=== PATIENT | male | born 1945 | race Two or more races ===

== ENCOUNTER 2022-12-17 16:31 | Inpatient (IN) | payer OTHER ==
[~2022-12-17] VITALS: Ht 165.1 cm; Wt 72.6 kg
[2022-12-17] MEDS ORDERED: DULCOLAX5 MG PO (17:14)
[2022-12-17 18:17] LABS: HEMATOCRIT 34.6 % (39.0-48.0); HEMOGLOBIN 11.2 g/dL (13-16.00); MEAN CELL VOLUME 88.4 fL (80.0-100.00); MEAN CORPUSCULAR HEMOGLOBIN 28.5 pg (27.00-32.0); MEAN CORPUSCULAR HGB CONC 32.3 g/dl (32.0-36.0); PLATELET COUNT 340 K/uL (150-450); RED BLOOD COUNT 3.92 M/uL (4.00-6.00); RED CELL DISTRIBUTION WIDTH 12.8 % (11.5-14.5)
[2022-12-17 18:38] LABS: INR 1.07; PARTIAL THROMBOPLASTIN TIME 30.2 SECONDS (22.0-34.0); PROTHROMBIN TIME 11.2 SECONDS (9.0-11.5)
[2022-12-17 18:50] LABS: ALBUMIN 3.1 gm/dL (3.4-5.0); BILIRUBIN TOTAL 0.61 mg/dL (0.3-1.2); CALCIUM 9.2 mg/dL (8.5-10.1); CREATININE SERUM 0.78 mg/dL (0.70-1.30); GFR 96.77; GLOBULINA 3.9 G/DL (2.4-3.5); POTASSIUM 4.81 mEq/L (3.5-5.1)
[2022-12-18 19:35] LABS: HEMATOCRIT 34.3 % (39.0-48.0); HEMOGLOBIN 11.5 g/dL (13-16.00); MEAN CELL VOLUME 86.6 fL (80.0-100.00); MEAN CORPUSCULAR HGB CONC 33.5 g/dl (32.0-36.0); PLATELET COUNT 298 K/uL (150-450); RED BLOOD COUNT 3.96 M/uL (4.00-6.00); RED CELL DISTRIBUTION WIDTH 13.1 % (11.5-14.5)
[2022-12-18 20:12] LABS: ALBUMIN 2.7 gm/dL (3.4-5.0); CALCIUM 8.7 mg/dL (8.5-10.1); CREATININE SERUM 0.79 mg/dL (0.70-1.30); GFR 95.36; MAGNESIUM 2.2 mg/dL (1.8-2.4); PHOSPHOROUS 3.4 mg/dL (2.5-4.9); POTASSIUM 4.45 mEq/L (3.5-5.1)
[2022-12-19 07:49] LABS: HEMATOCRIT 35.5 % (39.0-48.0); HEMOGLOBIN 11.4 g/dL (13-16.00); MEAN CELL VOLUME 87.5 fL (80.0-100.00); PLATELET COUNT 330 K/uL (150-450); RED BLOOD COUNT 4.06 M/uL (4.00-6.00); RED CELL DISTRIBUTION WIDTH 12.7 % (11.5-14.5)
[2022-12-19 08:24] LABS: ALBUMIN 2.6 gm/dL (3.4-5.0); CALCIUM 8.9 mg/dL (8.5-10.1); CREATININE SERUM 0.85 mg/dL (0.70-1.30); GFR 87.64; MAGNESIUM 2.2 mg/dL (1.8-2.4); PHOSPHOROUS 3.3 mg/dL (2.5-4.9); POTASSIUM 4.6 mEq/L (3.5-5.1)
[2022-12-20 08:08] LABS: ALBUMIN 2.6 gm/dL (3.4-5.0); BILIRUBIN TOTAL 1.19 mg/dL (0.3-1.2); CALCIUM 8.9 mg/dL (8.5-10.1); CREATININE SERUM 0.94 mg/dL (0.70-1.30); GFR 78.03; GLOBULINA 3.6 G/DL (2.4-3.5); MAGNESIUM 2.1 mg/dL (1.8-2.4); POTASSIUM 4.61 mEq/L (3.5-5.1); TOTAL PROTEIN 6.2 gm/dL (6.4-8.2)
[2022-12-20 09:03] LABS: HEMATOCRIT 34.9 % (39.0-48.0); HEMOGLOBIN 11.8 g/dL (13-16.00); MEAN CELL VOLUME 86.4 fL (80.0-100.00); MEAN CORPUSCULAR HEMOGLOBIN 29.1 pg (27.00-32.0); MEAN CORPUSCULAR HGB CONC 33.7 g/dl (32.0-36.0); PLATELET COUNT 308 K/uL (150-450); RED BLOOD COUNT 4.05 M/uL (4.00-6.00); RED CELL DISTRIBUTION WIDTH 13.2 % (11.5-14.5)
[2022-12-22 07:46] LABS: HEMATOCRIT 33.1 % (39.0-48.0); HEMOGLOBIN 11.1 g/dL (13-16.00); MEAN CELL VOLUME 88.2 fL (80.0-100.00); MEAN CORPUSCULAR HEMOGLOBIN 29.5 pg (27.00-32.0); MEAN CORPUSCULAR HGB CONC 33.4 g/dl (32.0-36.0); PLATELET COUNT 292 K/uL (150-450); RED BLOOD COUNT 3.75 M/uL (4.00-6.00); RED CELL DISTRIBUTION WIDTH 12.9 % (11.5-14.5)
[2022-12-22 08:06] LABS: CALCIUM 8.5 mg/dL (8.5-10.1); CREATININE SERUM 0.86 mg/dL (0.70-1.30); GFR 86.46; POTASSIUM 4.36 mEq/L (3.5-5.1)
[2022-12-22] MEDS ORDERED: TRAM1TAB98 PO (13:13)
[2022-12-22] MEDS ORDERED: DICY20TA PO (13:14)
[2022-12-22] MEDS ORDERED: IMODIUM A-D2 MG PO (13:14)
[2022-12-22] MEDS ORDERED: PEPCID AC20 MG PO (13:14)
== END 2022-12-22 17:30 | disposition home or self-care (01) | DRG 330 ==
LOC: ER 16:31 → SURH 18:36
PROVIDERS: General Practice; Internal Medicine; ADMIT Surgery; ATTEND Surgery
PROC: BW21YZZ Computerized Tomography (CT Scan) of Abdomen and Pelvis using Other Contrast (ICD-10-PCS; 2022-12-17)
PROC: 0D1B4Z4 Bypass Ileum to Cutaneous, Percutaneous Endoscopic Approach (ICD-10-PCS; principal; 2022-12-18 13:15)
DX: C18.0 Malignant neoplasm of cecum (principal); K56.691 Other complete intestinal obstruction

== ENCOUNTER 2022-12-27 11:02 | Inpatient (IN) | payer OTHER ==
[~2022-12-27] VITALS: Ht 167.6 cm; Wt 64.4 kg
[~2022-12-27 11:02] MED LIST: DICY20TA PO; DULCOLAX5 MG PO; IMODIUM A-D2 MG PO; PEPCID AC20 MG PO; TRAM1TAB98 PO
[2022-12-27 13:50] LABS: HEMATOCRIT 33.6 % (39.0-48.0); HEMOGLOBIN 10.7 g/dL (13-16.00); MEAN CELL VOLUME 87.7 fL (80.0-100.00); MEAN CORPUSCULAR HEMOGLOBIN 27.9 pg (27.00-32.0); MEAN CORPUSCULAR HGB CONC 31.9 g/dl (32.0-36.0); PLATELET COUNT 371 K/uL (150-450); RED BLOOD COUNT 3.83 M/uL (4.00-6.00); RED CELL DISTRIBUTION WIDTH 13.8 % (11.5-14.5)
[2022-12-27 13:55] LABS: ALBUMIN 2.7 gm/dL (3.4-5.0); BILIRUBIN TOTAL 1.05 mg/dL (0.3-1.2); CALCIUM 9.2 mg/dL (8.5-10.1); CREATININE SERUM 0.82 mg/dL (0.70-1.30); GFR 91.35; GLOBULINA 4.2 G/DL (2.4-3.5); POTASSIUM 4.13 mEq/L (3.5-5.1); TOTAL PROTEIN 6.9 gm/dL (6.4-8.2)
[2022-12-29] MEDS ORDERED: COLACE100 MG (10:34)
[2022-12-30] MEDS ORDERED: DICY20TA PO (08:09)
[2022-12-30] MEDS ORDERED: PEPCID AC20 MG PO (08:09)
[2022-12-30] MEDS ORDERED: INTESTINEX680 M1 PO (08:10)
== END 2022-12-30 12:16 | disposition home or self-care (01) | DRG 375 ==
LOC: ER 11:02 → SURG 12-28 07:35
PROVIDERS: Emergency Medicine; ADMIT Surgery; ATTEND Surgery
PROC: BW21ZZZ Computerized Tomography (CT Scan) of Abdomen and Pelvis (ICD-10-PCS; principal; 2022-12-27)
DX: C18.0 Malignant neoplasm of cecum (principal); K56.691 Other complete intestinal obstruction; Z93.2 Ileostomy status; R11.2 Nausea with vomiting, unspecified

== ENCOUNTER 2023-01-02 10:01 | Inpatient (IN) | payer OTHER ==
[~2023-01-02] VITALS: Ht 167.6 cm; Wt 63.5 kg
[~2023-01-02 10:01] MED LIST changes: +COLACE100 MG; +INTESTINEX680 M1 PO
[2023-01-02] MEDS ORDERED: DIALYVITE TABL1 EACH PO (10:44)
[2023-01-02] MEDS ORDERED: LYSIPLEX PLUS178 ML PO (10:45)
[2023-01-02 13:56] LABS: HEMATOCRIT 33.6 % (39.0-48.0); HEMOGLOBIN 11.4 g/dL (13-16.00); MEAN CELL VOLUME 86.1 fL (80.0-100.00); MEAN CORPUSCULAR HEMOGLOBIN 29.1 pg (27.00-32.0); MEAN CORPUSCULAR HGB CONC 33.8 g/dl (32.0-36.0); PLATELET COUNT 433 K/uL (150-450); RED CELL DISTRIBUTION WIDTH 13.9 % (11.5-14.5)
[2023-01-02 14:34] LABS: BILIRUBIN TOTAL 2.17 mg/dL (0.3-1.2); CALCIUM 10.3 mg/dL (8.5-10.1); CREATININE SERUM 1.21 mg/dL (0.70-1.30); GFR 58.3; GLOBULINA 3.9 G/DL (2.4-3.5); POTASSIUM 4.47 mEq/L (3.5-5.1); TOTAL PROTEIN 6.9 gm/dL (6.4-8.2)
[2023-01-03 03:18] LABS: ABG PH 7.516 (7.35-7.45); ABG PO2 83.2 mmHg (80-100); ABG pCO2 43.8 mmHg (35-45); BASE EXCESS 10.4 mmol/l; BICARBONATE 34.6 mmol/l (23-25); SaO2 97.5 %; allen test SATISFACTORY; puncture site RADIAL LEFT
[2023-01-03 03:19] LABS: o2 21 %
[2023-01-03 07:35] LABS: URINE APPEARANCE Clear; URINE BILIRRUBIN Small (NEGATIVE); URINE BLOOD Trace; URINE COLOR Dark Yellow; URINE GLUCOSE Negative (NEGATIVE); URINE LEUKOCYTE Trace; URINE NITRATE Negative; URINE PROTEIN Negative (NEGATIVE)
[2023-01-03 07:37] LABS: URINE BACTERIA 84.4 uL (0.0-1933); URINE EPITHELIAL CELLS 18.8 uL (0.0-38.8); URINE RBC 22.1 uL (0.0-20.8); URINE WBC 7.7 uL (0.0-23.2)
[2023-01-03 07:55] LABS: HEMATOCRIT 34.6 % (39.0-48.0); HEMOGLOBIN 11.6 g/dL (13-16.00); MEAN CELL VOLUME 86.4 fL (80.0-100.00); MEAN CORPUSCULAR HEMOGLOBIN 29.1 pg (27.00-32.0); MEAN CORPUSCULAR HGB CONC 33.6 g/dl (32.0-36.0); PLATELET COUNT 440 K/uL (150-450); RED BLOOD COUNT 4.01 M/uL (4.00-6.00); RED CELL DISTRIBUTION WIDTH 14.2 % (11.5-14.5)
[2023-01-03 08:35] LABS: INR 1.12; PARTIAL THROMBOPLASTIN TIME 27.9 SECONDS (22.0-34.0); PROTHROMBIN TIME 11.7 SECONDS (9.0-11.5)
[2023-01-03 08:40] LABS: ALBUMIN 2.9 gm/dL (3.4-5.0); BILIRUBIN TOTAL 2.59 mg/dL (0.3-1.2); BILIRUBIN,CONJUGATED 1.53 mg/dL (0.0-0.2); BILIRUBIN,UNCONJUGATED 1.06 mg/dL (0.0-0.6); CALCIUM 10.5 mg/dL (8.5-10.1); CHOL HDL RATIO 2.6 (0-5.0); CREATININE SERUM 1.07 mg/dL (0.70-1.30); GFR 67.19; GLOBULINA 3.8 G/DL (2.4-3.5); POTASSIUM 5.32 mEq/L (3.5-5.1); TOTAL PROTEIN 6.7 gm/dL (6.4-8.2)
[2023-01-03 08:41] LABS: C-REACTIVE PROTEIN 11.7 MG/DL (0.00-0.29)
[2023-01-03 11:27] LABS: ERYTHROCYTE SEDIMENTATION RATE 55 mm/hr
== END 2023-01-05 17:45 | disposition home or self-care (01) | DRG 389 ==
LOC: ER 10:01 → SURH 23:21
PROVIDERS: Emergency Medicine; General Practice; ADMIT Surgery; ATTEND Surgery
PROC: BW21YZZ Computerized Tomography (CT Scan) of Abdomen and Pelvis using Other Contrast (ICD-10-PCS; principal; 2023-01-02)
DX: K56.600 Partial intestinal obstruction, unspecified as to cause (principal); C18.0 Malignant neoplasm of cecum; E80.6 Other disorders of bilirubin metabolism

== ENCOUNTER 2023-01-23 13:30 | Inpatient (IN) | payer OTHER ==
[~2023-01-23] VITALS: Ht 152.4 cm; Wt 47.2 kg
[~2023-01-23 13:30] MED LIST changes: +DIALYVITE TABL1 EACH PO; +LYSIPLEX PLUS178 ML PO
[2023-01-23 14:21] LABS: HEMATOCRIT 42.7 % (39.0-48.0); HEMOGLOBIN 14.3 g/dL (13-16.00); MEAN CELL VOLUME 86.9 fL (80.0-100.00); MEAN CORPUSCULAR HGB CONC 33.4 g/dl (32.0-36.0); PLATELET COUNT 334 K/uL (150-450); RED BLOOD COUNT 4.91 M/uL (4.00-6.00); RED CELL DISTRIBUTION WIDTH 14.4 % (11.5-14.5)
[2023-01-23 14:39] LABS: URINE APPEARANCE Clear; URINE BILIRRUBIN Small (NEGATIVE); URINE BLOOD Negative; URINE COLOR Dark Yellow; URINE GLUCOSE Negative (NEGATIVE); URINE LEUKOCYTE Negative; URINE NITRATE Negative; URINE PROTEIN Trace (NEGATIVE); URINE UROBILINOGEN 0.2 E.U./dl
[2023-01-23 14:40] LABS: URINE BACTERIA 21.4 uL (0.0-1933); URINE EPITHELIAL CELLS 12.6 uL (0.0-38.8); URINE RBC 17.6 uL (0.0-20.8); URINE WBC 3.7 uL (0.0-23.2)
[2023-01-23 15:42] LABS: CREATININE SERUM 2.29 mg/dL (0.70-1.30); GFR 27.92
[2023-01-23 15:56] LABS: POTASSIUM 6.57 mEq/L (3.5-5.1)
[2023-01-24 04:50] LABS: CALCIUM 8.8 mg/dL (8.5-10.1); CREATININE SERUM 1.99 mg/dL (0.70-1.30)
[2023-01-24 05:23] LABS: HEMATOCRIT 37.9 % (39.0-48.0); MEAN CELL VOLUME 86.6 fL (80.0-100.00); MEAN CORPUSCULAR HEMOGLOBIN 29.7 pg (27.00-32.0); MEAN CORPUSCULAR HGB CONC 34.3 g/dl (32.0-36.0); PLATELET COUNT 348 K/uL (150-450); RED BLOOD COUNT 4.37 M/uL (4.00-6.00); RED CELL DISTRIBUTION WIDTH 14.3 % (11.5-14.5)
[2023-01-24 05:30] LABS: ERYTHROCYTE SEDIMENTATION RATE 58 mm/hr
[2023-01-24 05:31] LABS: INR 1.11; PARTIAL THROMBOPLASTIN TIME 26.9 SECONDS (22.0-34.0); PROTHROMBIN TIME 11.6 SECONDS (9.0-11.5)
[2023-01-24 05:38] LABS: GFR 32.84
[2023-01-24 05:51] LABS: ALBUMIN 2.7 gm/dL (3.4-5.0); BILIRUBIN TOTAL 3.08 mg/dL (0.3-1.2); CALCIUM 10.3 mg/dL (8.5-10.1); CREATININE SERUM 2.12 mg/dL (0.70-1.30); GFR 30.52; GLOBULINA 4.7 G/DL (2.4-3.5); PHOSPHOROUS 3.4 mg/dL (2.5-4.9); POTASSIUM 5.54 mEq/L (3.5-5.1); PROSTATIC SPECIFIC ANTIGEN 3.33 NG/ML (0.010-4.00); TOTAL PROTEIN 7.4 gm/dL (6.4-8.2)
[2023-01-24 05:53] LABS: C-REACTIVE PROTEIN 3.27 MG/DL (0.00-0.29)
[2023-01-24 06:00] LABS: POTASSIUM 6.01 mEq/L (3.5-5.1)
[2023-01-25 08:38] LABS: HEMATOCRIT 34.7 % (39.0-48.0); HEMOGLOBIN 11.9 g/dL (13-16.00); MEAN CELL VOLUME 84.9 fL (80.0-100.00); MEAN CORPUSCULAR HEMOGLOBIN 29.1 pg (27.00-32.0); MEAN CORPUSCULAR HGB CONC 34.3 g/dl (32.0-36.0); PLATELET COUNT 267 K/uL (150-450); RED BLOOD COUNT 4.08 M/uL (4.00-6.00); RED CELL DISTRIBUTION WIDTH 14.9 % (11.5-14.5)
[2023-01-25 09:08] LABS: ALBUMIN 2.5 gm/dL (3.4-5.0); BILIRUBIN TOTAL 2.75 mg/dL (0.3-1.2); CALCIUM 8.9 mg/dL (8.5-10.1); CREATININE SERUM 1.33 mg/dL (0.70-1.30); GFR 52.28; GLOBULINA 3.5 G/DL (2.4-3.5); MAGNESIUM 1.9 mg/dL (1.8-2.4); PHOSPHOROUS 2.8 mg/dL (2.5-4.9); POTASSIUM 5.67 mEq/L (3.5-5.1)
[2023-01-26 06:44] LABS: HEMATOCRIT 36.1 % (39.0-48.0); HEMOGLOBIN 12.3 g/dL (13-16.00); MEAN CELL VOLUME 87.5 fL (80.0-100.00); MEAN CORPUSCULAR HEMOGLOBIN 29.9 pg (27.00-32.0); MEAN CORPUSCULAR HGB CONC 34.2 g/dl (32.0-36.0); PLATELET COUNT 266 K/uL (150-450); RED BLOOD COUNT 4.12 M/uL (4.00-6.00); RED CELL DISTRIBUTION WIDTH 14.6 % (11.5-14.5)
[2023-01-26 06:49] LABS: ALBUMIN 2.5 gm/dL (3.4-5.0); BILIRUBIN TOTAL 2.87 mg/dL (0.3-1.2); CALCIUM 8.8 mg/dL (8.5-10.1); CREATININE SERUM 1.14 mg/dL (0.70-1.30); GFR 62.45; GLOBULINA 3.6 G/DL (2.4-3.5); MAGNESIUM 1.8 mg/dL (1.8-2.4); PHOSPHOROUS 2.3 mg/dL (2.5-4.9); POTASSIUM 4.34 mEq/L (3.5-5.1); TOTAL PROTEIN 6.1 gm/dL (6.4-8.2)
[2023-01-27 07:08] LABS: CALCIUM 8.6 mg/dL (8.5-10.1); CREATININE SERUM 0.93 mg/dL (0.70-1.30); POTASSIUM 4.43 mEq/L (3.5-5.1)
[2023-01-28 08:05] LABS: CALCIUM 8.3 mg/dL (8.5-10.1); CREATININE SERUM 0.83 mg/dL (0.70-1.30); GFR 90.08; MAGNESIUM 1.5 mg/dL (1.8-2.4); POTASSIUM 4.45 mEq/L (3.5-5.1)
[2023-01-28] MEDS ORDERED: NORFLEX100MG PO (09:17)
== END 2023-01-28 14:57 | disposition home or self-care (01) | DRG 683 ==
LOC: ER 13:30 → MEDI 20:35
PROVIDERS: Emergency Medicine; General Practice; Internal Medicine; ADMIT Internal Medicine; ATTEND Internal Medicine
PROC: BW21ZZZ Computerized Tomography (CT Scan) of Abdomen and Pelvis (ICD-10-PCS; principal; 2023-01-23)
PROC: BT43ZZZ Ultrasonography of Bilateral Kidneys (ICD-10-PCS; 2023-01-23)
DX: N17.9 Acute kidney failure, unspecified (principal); C20 Malignant neoplasm of rectum; E87.1 Hypo-osmolality and hyponatremia; E86.0 Dehydration; E87.5 Hyperkalemia; E87.8 Other disorders of electrolyte and fluid balance, not elsewhere classified; D49.0 Neoplasm of unspecified behavior of digestive system; R79.89 Other specified abnormal findings of blood chemistry; Z93.2 Ileostomy status